=== PATIENT | female | born 1965 | race Caucasian/White ===

== ENCOUNTER → 2021-03-09 | Outpatient (CLI) | payer OTHER | LOC: RAD 15:50 | DX: R07.89 Other chest pain (principal) | CPT/HCPCS: 71046 ==

== ENCOUNTER → 2021-03-22 | Outpatient (CLI) | payer OTHER | LOC: HEART 5 09:18 | DX: R07.89 Other chest pain (principal) | CPT/HCPCS: 94010 ==

== ENCOUNTER → 2021-06-28 | Outpatient (CLI) | payer OTHER | LOC: HEART 5 06-27 11:00 | DX: R07.9 Chest pain, unspecified (principal); I07.1 Rheumatic tricuspid insufficiency | CPT/HCPCS: 93306 ==

== ENCOUNTER → 2022-05-08 | Outpatient (CLI) | payer OTHER | LOC: EXRD 09:41 | DX: R10.9 Unspecified abdominal pain (principal); N26.1 Atrophy of kidney (terminal); N28.1 Cyst of kidney, acquired; K80.20 Calculus of gallbladder without cholecystitis without obstruction | CPT/HCPCS: 76700 ==

== ENCOUNTER → 2022-06-23 | Outpatient (CLI) | payer OTHER | LOC: RAD 11:54 | DX: M25.562 Pain in left knee (principal) | CPT/HCPCS: 73562 ==